=== PATIENT | male | born 1965 | race Caucasian/White ===

== ENCOUNTER 2016-08-21 00:06 | Inpatient (IN) | payer OTHER ==
[~2016-08-21] VITALS: Ht 180.3 cm; Wt 91.7 kg
--- NOTE | 2016-08-21 00:33 | DIAGNOSTIC IMAGING REPORT ---
PROCEDURE: XR CHEST 1 VIEW INDICATION: SHORTNESS OF BREATH TECHNIQUE: Portable AP view (0025 hours). COMPARISON: None. FINDINGS: Allowing for suboptimal inspiration, and overlying wires and electrodes, there are moderate parenchymal changes at the left lung base. Right lung is clear. Heart and mediastinum are normal. Thorax is normal. IMPRESSION: 1. Moderate parenchymal changes at the left lung base. Consider inflammatory process and/or pneumonia. 2. Findings discussed with Dr. Shalom Lau.
--- NOTE | 2016-08-21 01:39 | ED NURSING NOTES ---
Clinical Report - Nurses [facility] [place] [address] 08/21/2016 0:06 Patient: MOON BUCHANAN TRIAGE Triage time 00:08. Acuity: LEVEL 2. Chief Complaint: CHEST PAIN and (Onset of chest pain this afternoon, has gotten worse over the course of the day. Describes pain as "sharp chest pain" in the sternum. Pain does not radiate. Reports having a head cold which began about 5 days ago.). Alert. SEPSIS SCREEN: Sepsis Screen: positive. Infection suspected/documented. Temperature greater than 38.3 degrees C (101 degrees F), heart rate greater than 90 and respiratory rate greater than 20. Physician notified and protocol initiated. --00:16 Sunil Duckworth R.N. 00:08 08/21/16. BP: 172/94 (regular adult cuff) taken on the left arm, via an automated monitor, while lying. HR: 123 (tachycardic). RR: 22 (regular, labored and normal). O2 saturation: 87% on room air. O2 started via nasal cannula. Temp: 101.9 F (oral). --00:16 Sunil Duckworth R.N. Weight: 81.6 kg stated. Height/Length: 71 inches Per Patient. BMI: 25.1. --00:14 Sunil Duckworth R.N. Medications None. --00:13 Sunil Duckworth R.N. Medication/allergy information source: the patient. --00:16 Sunil Duckworth R.N. Allergies No Known Drug Allergy. --00:13 Sunil Duckworth R.N. History Arrived by private vehicle. Historian: patient. Accompanied by spouse. Primary physician (None). This started today. He has had difficulty breathing and a nonproductive cough. No nausea, vomiting or fever. 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 Took ibuprofen. PAST MEDICAL HX: Immunizations: status is unknown. Has not received seasonal influenza immunization. SOCIAL HX: Current every day heavy tobacco smoker (cigarette)- less than 1 pack per day. History of heavy drug use: heroin, methamphetamines. Recently used drugs today. No alcohol use. He has not traveled outside the [place] The patient was not exposed to MRSA. ABUSE ASSESSMENT: Abuse assessment: The patient was asked "Do you feel safe in your home?" and "Has anyone hurt you or threatened to hurt you?". No report of abuse. SELF HARM ASSESSMENT: A self harm assessment was performed. The patient answered "no" to the question "Do you have thoughts of harming or killing yourself?" and "Have you recently had thoughts about harming or killing others?". FALL RISK ASSESSMENT: Fall risk assessment completed. No fall risk identified. NUTRITIONAL RISK ASSESSMENT: The nutritional risk assessment revealed no deficiencies. FUNCTIONAL ASSESSMENT: Functional assessment: no impairments noted. LEARNING NEEDS ASSESSMENT: The learning needs assessment revealed no barriers. SKIN INTEGRITY ASSESSMENT: Skin integrity risk assessment completed. No skin integrity risk identified. --00:16 Sunil Duckworth R.N. ADDITIONAL SURGERIES: Wrist Surgery. --00:13 Sunil Duckworth R.N. Assessment GENERAL / NEURO / PSYCH: Alert. Oriented X 4. Appears in distress. [place] Coma Scale: 15- eyes open spontaneously (4); best verbal response- oriented x 4 (5); best motor response- obeys commands (6). Patient appears calm and cooperative. RESPIRATORY: Mild respiratory distress. SKIN: Skin is warm. Skin is diaphoretic. --00:16 Sunil Duckworth R.N. Interventions ID band on patient. To treatment room. --00:16 Sunil Duckworth R.N. PHYSICAL ASSESSMENT To room via wheelchair. GENERAL / NEURO / PSYCH: Alert. Oriented X 4. Appears in pain and in distress. RESPIRATORY: Moderate respiratory distress. The patient can speak a few words at a time. Mild clavicular and intercostal accessory muscle use. Decreased breath sounds in the bases bilaterally. Expiratory wheezes in the right and left upper lung posteriorly. CVS: Cardiac rhythm: sinus tachycardia. Heart sounds within normal limits. Pulses: right radial 2+ and left radial 2+. Capillary refill less than 2 seconds. GI / : Abdomen soft and nontender. Abnormal bowel sounds present in all quadrants (Hypoactive). EXTREMITIES: No lower extremity edema. SKIN: Skin is pale. ( Hot). --00:41 Sunil Duckworth R.N. NURSING PROGRESS NOTES The initial plan of care for this patient has been created This plan of care was discussed with the patient and spouse. soil biology teacher, pulse oximeter and NIBP monitor placed on patient; reference and instruction librarian- Lead II. Patient gowned. Reassurance given to the patient. Two patient identifiers checked. Call light placed in reach. Side rails up x 1. Bed placed in lowest position. Brakes of bed on. Patient ready for evaluation- ED physician notified. --00:17 Sunil Duckworth R.N. EKG time: (0014). EKG was ordered, performed by a tech and shown to the ED physician. --00:19 Sunil Duckworth R.N. 00:24 08/21/2016 Site #1 started via IV in the right antecubital space with an 20g angiocath, with aseptic technique and good blood return; one attempt. Blood drawn: rainbow set and cultures x1. Labeled in the presence of the patient and sent to the lab. Saline lock flushed with 10 mL saline. --00:24 Sunil Duckworth R.N. 00:24 08/21/2016 Started bag #1 1000 mL IV Fluids IV NS (Saline); bolus of 1000 mL over 1 hour(s) then at 1000 mL/hr over 1 hour(s) via site #1. Allergies verified and confirmed 5 rights. IV patency established. IV site checked: no pain, redness, or swelling. IV flushed thoroughly pre- and post-medication administration. Completed per protocol. --00:24 Sunil Duckworth R.N. 00:36 08/21/2016 Site #2 started via IV in the left antecubital space with an 20g angiocath, with aseptic technique and good blood return; one attempt. Blood drawn: cultures x2. Saline lock flushed with 10 mL saline. --00:36 Sunil Duckworth R.N. 00:36 08/21/2016 Started 750 mg of Levaquin (Levofloxacin) IVPB in bag #1 250 mL; at 100 mL/hr over 2.5 hour(s) via site #2; Allergies verified and confirmed 5 rights. IV patency established. IV site checked: no pain, redness, or swelling. IV flushed thoroughly pre- and post-medication administration. Completed per protocol. --00:36 Sunil Duckworth R.N. 00:36 08/21/16. BP: 148/92 (regular adult cuff) taken on the left arm, via an automated monitor, while lying. HR: 124 (regular and tachycardic). RR: 22 (regular, labored and rapid). O2 saturation: 90% on nasal cannula at 2 liters/minute. O2 started via nasal cannula at 3 liters/minute. --00:37 Sunil Duckworth R.N. 00:42 08/21/2016 Tylenol (Acetaminophen) PO Tablets 650 mg given. Allergies verified and confirmed 5 rights. --00:42 Sunil Duckworth R.N. 01:07 08/21/16. BP: 146/83 (regular adult cuff) taken on the left arm, via an automated monitor, while lying. HR: 126 (regular and tachycardic). RR: 16 (regular, unlabored and normal). O2 saturation: 92% on nasal cannula at 3 liters/minute. --01:07 Sunil Duckworth R.N. Overall patient status is the same- he states feels the same. --01:07 Sunil Duckworth R.N. Patient ID band checked for patient name and birthdate: patient confirmed. Instructions provided to collect clean catch urine and patient verbalized understanding. Clean catch urine collected with return of damaso-colored clear urine; sample sent to lab for urinalysis. Specimen labeled in the presence of the patient. --01:08 Sunil Duckworth R.N. 01:14 08/21/2016 Toradol IVP 30 mg given over 2 minute(s) via site #1. Allergies verified and confirmed 5 rights. IV patency established. IV site checked: no pain, redness, or swelling. IV flushed thoroughly pre- and post-medication administration. IVP given by RN. --01:14 Sunil Duckworth R.N. 01:14 08/21/2016 Dilaudid (HYDROmorphone HCl PF) IVP 1 mg given over 2 minute(s) via site #1. Sedative warning given to the patient. IV patency established. IV site checked: no pain, redness, or swelling. IV flushed thoroughly pre- and post-medication administration. IVP given by RN. --01:14 Sunil Duckworth R.N. 01:56 08/21/16. O2 saturation: 91% on nasal cannula at 6 liters/minute. Additional comments: Pt was placed on 6 liters nc by RT. --01:57 Patrick Ochoa R.N. 01:58 08/21/2016 IV Fluids IV NS Discontinued: bag #1 completed. Total amount infused: 1000 mL. IV patency established. IV site checked: no pain, redness, or swelling. IV flushed thoroughly. --01:58 Barbara Jimenez 01:59 08/21/2016 Levaquin IVPB Discontinued: bag #1 completed. Total amount infused: 150 mL. IV patency established. IV site checked: no pain, redness, or swelling. IV flushed thoroughly. --01:59 Barbara Jimenez Patient transported to [place] by stretcher with O2. (02:03). --02:04 Patrick Ochoa R.N. 02:26 08/21/2016 Started 2 gm of Vancomycin IVPB; at 200 mL/hr over 1 hour(s) via site #1 via IV pump. Allergies verified and confirmed 5 rights. IV patency established. IV site checked: no pain, redness, or swelling. IV flushed thoroughly pre- and post-medication administration. --02:26 Patrick Ochoa R.N. DISPOSITION / DISCHARGE ( Report was given to Shayne and the pt is going to room 205.). --02:23 Patrick Ochoa R.N. 02:22 08/21/16. BP: 131/78. HR: 119. RR: 16. O2 saturation: 95% on nasal cannula at 6 liters/minute. --02:23 Patrick Ochoa R.N. Departure time: 02:30. Condition at departure: improved. Admitted to Acute Care (02:30). ( Rm 205. Transported by stretcher and on 6 liters nc. Pt is was alert and oriented x4. Pt denied any sob.). NATHALIA COMA SCORE: [place] Coma Scale: 15- eyes open spontaneously (4); best verbal response- oriented x 4 (5); best motor response- obeys commands (6). --02:31 Patrick Ochoa R.N. Locked/Released at 08/21/2016 2:32 by Patrick Ochoa R.N.
--- NOTE | 2016-08-21 01:39 | ED ORDER SUMMARY ---
..... Patient: MOON BUCHANAN OrderSheet [facility] VisitID: [id number] [place] [address] 51y, M Registration Date/Time: 08/21/2016 ORDER SHEET Weight: 81.6 kg (stated) Allergies: No Known Drug Allergy GENERAL ORDERS: Blood Culture (No) (N/A) Urgent (00:16 08/21/2016 Susana SUMMERS) (Ack 0:21 IJurca ER Tech1) (0:24 JDeElena R.N.) Chest 1V Urgent (00:08/21/2016 Susana SUMMERS) (Ack 0:21 IJurca ER Tech1) (0:25 AMcQuoid ER Tech1) Cardiac Panel Stat (00:08/21/2016 Susana SUMMERS) (Ack 0:21 IJurca ER Tech1) (0:23 JDeElena R.N.) Oxygen (2 L/min) (NC) (00:18 08/21/2016 Susana SUMMERS) (0:19 JDeElena R.N.) (Ack 0:21 IJurca ER Tech1) Pulse oximeter (00:08/21/2016 Susana SUMMERS) (0:19 JDeElena R.N.) (Ack 0:21 IJurca ER Tech1) EKG - ER Stat (00:08/21/2016 Susana SUMMERS) (0:19 JDeElena R.N.) (Ack 0:21 IJurca ER Tech1) UA-Culture if indicated Urgent (00:08/21/2016 Susana SUMMERS) (Ack 0:25 IJurca ER Tech1) (1:08 JDeElena R.N.) Lactic Acid for Sepsis Protocol Urgent (00:08/21/2016 Susana SUMMERS) (Ack 0:25 IJurca ER Tech1) (0:36 JDeElena R.N.) PCT (Procalcitonin) Urgent (00:08/21/2016 Susana SUMMERS) (Ack 0:25 IJurca ER Tech1) (0:36 JDeElena R.N.) ABG (G) Urgent (01:21 08/21/2016 Susana SUMMERS) (Ack 1:24 IJurca ER Tech1) (1:31 TLewis R.N.) CTA Thorax w Cont (No) (N/A) Urgent (01:38 08/21/2016 Susana SUMMERS) (Ack 1:41 IJurca ER Tech1) (2:13 TLewis R.N.) Urine Drug Screen Urgent (01:59 08/21/2016 Susana SUMMERS) (Ack 1:59 IJurca ER Tech1) (2:21 JDeElena R.N.) MEDICATION ORDERS: Tylenol PO 650 mg (NOW) (00:23 08/21/2016 Susana SUMMERS) (Ack 0:24 JDeElena R.N.) (0:42 JDeElena R.N.) IV FLUIDS: IV NS : initial bolus none -, then 1000 mL/hr for 2h (NOW); Urgent (00:17 08/21/2016 Susana SUMMERS) (Ack 0:19 JDeElena R.N.) Levaquin IV 750 mg/150 mL (NOW) (00:22 08/21/2016 Susana SUMMERS) (Ack 0:24 JDeElena R.N.) (0:36 JDeElena R.N.) Toradol IV 30 mg (NOW) (01:09 08/21/2016 Susana SUMMERS) (1:14 JDeElena R.N.) Dilaudid IV 1 mg (NOW) (01:09 08/21/2016 Susana SUMMERS) (1:14 JDeElena R.N.) Vancomycin IV 25 mg/kg (NOW) (02:01 08/21/2016 Susana SUMMERS) (2:26 TLewis R.N.) ORDER SHEET NOTES: [Electronically signed by Patrick Ochoa R.N. (02:32 08/21/2016)] [Electronically signed by Shalom Lau MD (08:46 08/21/2016)] [Electronically locked/signed by Patrick Ochoa R.N. (02:32 08/21/2016)]
--- NOTE | 2016-08-21 01:39 | ED CLINICAL REPORT ---
Clinical Report - Physicians/Mid Levels [facility] [address] [place] [address] 08/21/2016 0:06 Patient: MOON BUCHANAN Time Seen: 00:16 Aug 21 2016. Arrived- By private vehicle. Historian- patient. CPT: Critical care < 74 min plus (#[id number]) and 30-74 min plus (#[id number]). EKG interpretation (#[id number]). HISTORY OF PRESENT ILLNESS Chief Complaint: COUGH and FEVER. This started today Head cold for past 5 days. and is still present. The illness is described as moderate. The patient has had sputum production, a cough, chest discomfort, difficulty breathing and sinus pressure. He has had fever. No chest pain. Additional history - No known contact with a sick individual. Similar symptoms previously: None. Recent medical care: Not recently seen/assessed. REVIEW OF SYSTEMS No headache, eye discomfort, nausea, vomiting or diarrhea. No abdominal pain or pain, pedal edema or edema or calf pain. No difficulty with urination or urination or skin rash, lesions or rash. No enlarged lymph nodes, joint pain, sore throat, palpitations or black stools. No bloody stools, constipation, urinary frequency, hematuria or diabetic symptoms. No easy bruising. The patient has had fever, fatigue and weakness. All systems otherwise negative, except as recorded above. PAST HISTORY Wrist Surgery. Medications: None. Allergies: No Known Drug Allergy. SOCIAL HISTORY Heavy tobacco smoker (cigarette)- less than 1 pack per day. History of drug use: heroin, methamphetamines. No alcohol use. ADDITIONAL NOTES The nursing notes have been reviewed. PHYSICAL EXAM Vital Signs: 08/21/2016 00:08 BP: 172/94. HR: 123. RR: 22. O2 saturation: 87%. Temp: 101.9 F. Appearance: Alert. Patient in mild distress. Head: No tenderness to palpation/percussion over the sinuses. Eyes: Pupils equal, round and reactive to light. Eyes normal inspection. ENT: Ears normal. Nose normal. Dry mucous membranes present. Pharynx normal. Uvula midline. Neck: Normal inspection. No JVD or meningeal signs. CVS: Tachycardia. Heart sounds normal. Pulses normal. Normal rhythm. Respiratory: Moderate respiratory distress with tachypnea. Moderate rales present in the lower third of both lung hernandez. Abdomen: Soft and nontender. Back: Normal inspection. No CVA tenderness. Skin: Skin warm. Normal skin color. No rash. Extremities: Extremities exhibit normal ROM. No calf tenderness. No lower extremity edema. Neuro: Oriented X 3. No motor deficit. No sensory deficit. Reflexes normal. LABS, X-RAYS, AND EKG EKG: No acute ischemia. Rate: 123. Tachycardia. Normal P waves. Normal QRS complex. Normal axis. Normal ST and T waves. Prior EKG unavailable. The study has been interpreted contemporaneously. The study has been independently viewed by me. The EKG appears to be a good tracing. Chest X-ray: Infiltrate in the left lower lobe. Consistent with pneumonia. Views: AP (portable). The X-rays were independently viewed by me, interpreted by the radiologist and discussed with the radiologist. Laboratory Tests: UA-Culture if indicated: (SALVADOR: 08/21/2016 01:08) ( [facility] 08/21/[place] 01:25) Final results Test Result Flag Units (Reference) URINE COLOR YELLOW URINE APPEARANCE CLEAR URINE GLUCOSE 3+ (NEGATIVE) URINE BILIRUBIN NEGATIVE (NEGATIVE) URINE KETONE NEGATIVE (NEGATIVE) URINE SPECIFIC GRAVITY 1.015 (1.010-1.030) URINE PH 7.5 (5.0-8.0) URINE PROTEIN TRACE (NEGATIVE) URINE UROBILINOGEN 0.2 EU/dL (0.2-1.0) URINE NITRITE NEGATIVE (NEGATIVE) URINE BLOOD NEGATIVE (NEGATIVE) URINE LEUK ESTERASE NEGATIVE (NEGATIVE) URINE RBC NONE SEEN rbc/hpf (0-1) URINE WBC RARE wbc/hpf (0-1) URINE EPITHELIAL CELLS NONE SEEN EPI/hpf (0-5) URINE BACTERIA NONE SEEN (NONE SEEN) URINE COMMENT CULT NOT INDICATED URINE CULTURES ARE SET-UP BASED ON THE FOLLOWING CRITERIA:POSITIVE NITRITEPOSITIVE LEUKOCYTE ESTERASEGREATER THAN 10 WHITE BLOOD CELLSMODERATE (2+) OR GREATER BACTERIA CBC w Diff: (SALVADOR: 08/21/2016 00:20) ( [facility] 08/21/2016 00:54) Final results Test Result Flag Units (Reference) WHITE BLOOD COUNT 17.6 H K/uL (4.5-11.5) RED BLOOD COUNT 5.43 M/uL (4.50-5.90) HEMOGLOBIN 15.9 gm/dL (13.5-17.5) HEMATOCRIT 46.9 % (41.0-53.0) MEAN CELL VOLUME 86 fL (80-100) MEAN CORPUSCULAR HGB 29 pg (26-34) MEAN CORPUSCULAR HGB CONC 34 g/dL (31-37) RED CELL DISTRIBUTION WIDTH 13.4 % (11.6-14.8) PLATELET COUNT 292 K/uL (150-400) NEUTROPHIL % 87.2 H % (50-75) LYMPH % 6.3 L % (25-40) MONO % 6.3 % (3-14) EOSINOPHIL % 0 % (0-4) BASOPHIL % 0.2 % (0-2) [id number]: (SALVADOR: 08/21/2016 05:40) ( MsgRcvd 08/21/2016 06:24) Final results Test Result Flag Units (Reference) PROCALCITONIN 1.0 H ng/mL (0-0.5) PCT Concentration: Interpretation : Risk/option for action PCT <=0.5 ng/mL : Systemic : Low risk forinfection(sepsis): progression to severeis not likely. : systemic infection.Local bacterial : CAUTION-PCT levelsinfection is : below 0.5 ng/mL do notpossible. : exclude an infection,because localizedinfections (withoutsystemic signs) may beassociated with suchlow levels. If PCT ismeasured very earlyafter a bacterialchallenge (usually <6hours), these valuesmay still be low. Inthis case PCT shouldbe re-assessed 6-24hours later. PCT >0.5 and : Systemic infection: Moderate risk for<= 2 ng/mL : (sepsis) is : progression to severepossible, but : systemic infection.other conditions : The patient should beare known to : closely monitoredelevate PCT. : both clinically andby re-assessing PCTwithin 6-24 hours. PCT > 2 ng/mL : Systemic infection: High risk for(sepsis) is likely: progression to severeunless other : systemic infection.causes are known. : PCT >= 10 ng/mL : Important systemic: High likelihood ofinflammatory : severe sepsis orresponse, almost : septic shock.exclusively due to:severe bacterial :sepsis or septic :shock. : Urine Drug Screen: (SALVADOR: 08/21/2016 01:08) ( MsgRcvd 08/21/2016 02:28) Final results Test Result Flag Units (Reference) AMPHETAMINE/METHAMPHETAMINE POSITIVE H (NEGATIVE) BARBITURATE NEGATIVE (NEGATIVE) BENZODIAZEPINE NEGATIVE (NEGATIVE) CANNABINOID NEGATIVE (NEGATIVE) COCAINE NEGATIVE (NEGATIVE) ECSTASY NEGATIVE (NEGATIVE) METHADONE NEGATIVE (NEGATIVE) OPIATE POSITIVE H (NEGATIVE) The urine drug screen is a qualitative screening test fordrug overdose and abuse. All screen results should beconsidered as presumptive.Drugs screened for are as follows:BenzodiazepinesCocaineAmphetamines/MetamphetaminesTHC (Tetrahydrocannabinol)OpiatesBarbituratesEcstasyMethadonePositive results are unconfirmed. For confirmation, notifythe lab for the specimen to be sent to the reference lab.All confirmations must be performed by a differentmethodology.The ingestion of natural herbal and plant productscontaining Ephedra/Ephedra metabolites can produce in urineone or more substances capable of cross reacting withamphetamine/methamphetamine immunoassays. These testsprovide a preliminary result only. A more specificalternative chemical method must be used to obtain aconfirmed analytical result. [id number]: (SALVADOR: 08/21/2016 00:20) ( MsgRcvd 08/21/2016 01:40) Final results Test Result Flag Units (Reference) LACTIC ACID SEPSIS PROTOCOL 2.3 H mmol/L (0.4-2.0) [id number]: (SALVADOR: 08/21/2016 00:20) ( MsgRcvd 08/21/2016 01:21) Final results Test Result Flag Units (Reference) PROCALCITONIN <0.5 ng/mL (0-0.5) PCT Concentration: Interpretation : Risk/option for action PCT <=0.5 ng/mL : Systemic : Low risk forinfection(sepsis): progression to severeis not likely. : systemic infection.Local bacterial : CAUTION-PCT levelsinfection is : below 0.5 ng/mL do notpossible. : exclude an infection,because localizedinfections (withoutsystemic signs) may beassociated with suchlow levels. If PCT ismeasured very earlyafter a bacterialchallenge (usually <6hours), these valuesmay still be low. Inthis case PCT shouldbe re-assessed 6-24hours later. PCT >0.5 and : Systemic infection: Moderate risk for<= 2 ng/mL : (sepsis) is : progression to severepossible, but : systemic infection.other conditions : The patient should beare known to : closely monitoredelevate PCT. : both clinically andby re-assessing PCTwithin 6-24 hours. PCT > 2 ng/mL : Systemic infection: High risk for(sepsis) is likely: progression to severeunless other : systemic infection.causes are known. : PCT >= 10 ng/mL : Important systemic: High likelihood ofinflammatory : severe sepsis orresponse, almost : septic shock.exclusively due to:severe bacterial :sepsis or septic :shock. : CHEM 13 PANEL: (SALVADOR: 08/21/2016 00:20) ( MsgRcvd 08/21/2016 01:06) Final results Test Result Flag Units (Reference) GLUCOSE 150 H mg/dL (70-110) BUN 10 mg/dL (7-18) CREATININE 1.0 mg/dL (0.6-1.3) Estimated GFR >60 mL/min Estimated GFR- >60 mL/min Note: Persistent reduction over 3 months in eGFR<60 mL/min/1.73 m2 defines CKD. Patients with eGFR values>=60 mL/min/1.73 m2 may also have CKD if evidence ofpersistent proteinuria. Additional information may be foundat www.kidney.org. SODIUM 135 L mmol/L (136-145) POTASSIUM 4.4 mmol/L (3.5-5.1) CHLORIDE 99 mmol/L (98-107) CARBON DIOXIDE 28 mmol/L (21-32) CALCIUM 9.2 mg/dL (8.5-10.1) TOTAL PROTEIN 7.9 g/dL (6.4-8.2) ALBUMIN 3.6 g/dL (3.3-5.0) BILIRUBIN, TOTAL 0.8 mg/dL (0.0-1.0) ALKALINE PHOSPHATASE 103 U/L (46-116) AST (SGOT) 23 U/L (15-37) ALT (SGPT) 46 U/L (12-78) MAGNESIUM 1.7 L mg/dL (1.8-2.4) CPK 60 U/L (24-260) TROPONIN I <0.05 L ng/mL (0.00-1.5) TROPONIN REFERENCE RANGE:<0.1 NEGATIVE0.1-1.5 INDETERMINANT>1.5 POSITIVE ABG: (SALVADOR: 08/21/2016 01:21) ( MsgRcvd 08/21/2016 01:43) Final results Test Result Flag Units (Reference) FIO2 28 % (20-101) ABG MODE OF DELIVERY NC MODIFIED TAM TEST POSITIVE? YES ARTERIAL BLOOD GAS SITE RR ARTERIAL BLOOD GAS pH 7.50 H (7.35-7.45) ABG PCO2 29.4 L mmHg (35-45) ABG PO2 61.9 L mmHg (80.0-100.0) ABG BASE EXCESS 0.0 H mmol/L (-6.0--6.0) ABG HCO3 22.8 mmol/L (20.0-26.0) ABG TCO2 23.7 L mmol/L (24.0-30.0) ABG NkQuD0c 101.9 H mmHg (7.0-14.0) *NOTE: Normal rangeis based on aFIO2 of 21% ABG SAT O2 94.2 L % (95.1-100.0) ABG TOTAL HEMOGLOBIN 14.0 g/dL (14.0-18.0) ABG O2 HEMOGLOBIN 92.2 L % (95.0-100.0) ABG CARBOXYHEMOGLOBIN 2.2 H % (0.5-1.5) ABG METHEMOGLOBIN -0.1 L % (0.4-1.5) ABG RHEMOGLOBIN 5.7 % . PROGRESS AND PROCEDURES Course of Care: NC 02 IV NS Albuterol HHN Tylenol 650 mg po BC times 2 Levaquin 750 mg IV Patient is stable. Symptoms better. Discussed case with on-call health care provider, (Russel). Reviewed test results. Agreed upon treatment plan and decision to admit. Health care provider will see patient in hospital. Patient/family counseled. Old medical records ordered. Disposition orders written. Disposition: Admitted to Acute Care. CLINICAL IMPRESSION Bacterial bronchopneumonia with hypoxemia and sepsis. Vital signs recorded and reviewed; empiric antibiotics given in the ED. (Electronically signed by Shalom Lau MD 08/21/2016 8:46)
--- NOTE | 2016-08-21 01:39 | ED CLINICAL REPORT ---
Clinical Report - Physicians/Mid Levels [facility] [address] [place] [address] 08/21/2016 0:06 Patient: MOON BUCHANAN Time Seen: 00:16 Aug 21 2016. Arrived- By private vehicle. Historian- patient. CPT: Critical care < 74 min plus (#[id number]) and 30-74 min plus (#[id number]). EKG interpretation (#[id number]). HISTORY OF PRESENT ILLNESS Chief Complaint: COUGH and FEVER. This started today Head cold for past 5 days. and is still present. The illness is described as moderate. The patient has had sputum production, a cough, chest discomfort, difficulty breathing and sinus pressure. He has had fever. No chest pain. Additional history - No known contact with a sick individual. Similar symptoms previously: None. Recent medical care: Not recently seen/assessed. REVIEW OF SYSTEMS No headache, eye discomfort, nausea, vomiting or diarrhea. No abdominal pain or pain, pedal edema or edema or calf pain. No difficulty with urination or urination or skin rash, lesions or rash. No enlarged lymph nodes, joint pain, sore throat, palpitations or black stools. No bloody stools, constipation, urinary frequency, hematuria or diabetic symptoms. No easy bruising. The patient has had fever, fatigue and weakness. All systems otherwise negative, except as recorded above. PAST HISTORY Wrist Surgery. Medications: None. Allergies: No Known Drug Allergy. SOCIAL HISTORY Heavy tobacco smoker (cigarette)- less than 1 pack per day. History of drug use: heroin, methamphetamines. No alcohol use. ADDITIONAL NOTES The nursing notes have been reviewed. PHYSICAL EXAM Vital Signs: 08/21/2016 00:08 BP: 172/94. HR: 123. RR: 22. O2 saturation: 87%. Temp: 101.9 F. Appearance: Alert. Patient in mild distress. Head: No tenderness to palpation/percussion over the sinuses. Eyes: Pupils equal, round and reactive to light. Eyes normal inspection. ENT: Ears normal. Nose normal. Dry mucous membranes present. Pharynx normal. Uvula midline. Neck: Normal inspection. No JVD or meningeal signs. CVS: Tachycardia. Heart sounds normal. Pulses normal. Normal rhythm. Respiratory: Moderate respiratory distress with tachypnea. Moderate rales present in the lower third of both lung hernandez. Abdomen: Soft and nontender. Back: Normal inspection. No CVA tenderness. Skin: Skin warm. Normal skin color. No rash. Extremities: Extremities exhibit normal ROM. No calf tenderness. No lower extremity edema. Neuro: Oriented X 3. No motor deficit. No sensory deficit. Reflexes normal. LABS, X-RAYS, AND EKG EKG: No acute ischemia. Rate: 123. Tachycardia. Normal P waves. Normal QRS complex. Normal axis. Normal ST and T waves. Prior EKG unavailable. The study has been interpreted contemporaneously. The study has been independently viewed by me. The EKG appears to be a good tracing. Chest X-ray: Infiltrate in the left lower lobe. Consistent with pneumonia. Views: AP (portable). The X-rays were independently viewed by me, interpreted by the radiologist and discussed with the radiologist. Laboratory Tests: UA-Culture if indicated: (SALVADOR: 08/21/2016 01:08) ( [facility] 08/21/2016 01:25) Final results Test Result Flag Units (Reference) URINE COLOR YELLOW URINE APPEARANCE CLEAR URINE GLUCOSE 3+ (NEGATIVE) URINE BILIRUBIN NEGATIVE (NEGATIVE) URINE KETONE NEGATIVE (NEGATIVE) URINE SPECIFIC GRAVITY 1.015 (1.010-1.030) URINE PH 7.5 (5.0-8.0) URINE PROTEIN TRACE (NEGATIVE) URINE UROBILINOGEN 0.2 EU/dL (0.2-1.0) URINE NITRITE NEGATIVE (NEGATIVE) URINE BLOOD NEGATIVE (NEGATIVE) URINE LEUK ESTERASE NEGATIVE (NEGATIVE) URINE RBC NONE SEEN rbc/hpf (0-1) URINE WBC RARE wbc/hpf (0-1) URINE EPITHELIAL CELLS NONE SEEN EPI/hpf (0-5) URINE BACTERIA NONE SEEN (NONE SEEN) URINE COMMENT CULT NOT INDICATED URINE CULTURES ARE SET-UP BASED ON THE FOLLOWING CRITERIA:POSITIVE NITRITEPOSITIVE LEUKOCYTE ESTERASEGREATER THAN 10 WHITE BLOOD CELLSMODERATE (2+) OR GREATER BACTERIA CBC w Diff: (SALVADOR: 08/21/2016 00:20) ( [facility] 08/21/2016 00:54) Final results Test Result Flag Units (Reference) WHITE BLOOD COUNT 17.6 H K/uL (4.5-11.5) RED BLOOD COUNT 5.43 M/uL (4.50-5.90) HEMOGLOBIN 15.9 gm/dL (13.5-17.5) HEMATOCRIT 46.9 % (41.0-53.0) MEAN CELL VOLUME 86 fL (80-100) MEAN CORPUSCULAR HGB 29 pg (26-34) MEAN CORPUSCULAR HGB CONC 34 g/dL (31-37) RED CELL DISTRIBUTION WIDTH 13.4 % (11.6-14.8) PLATELET COUNT 292 K/uL (150-400) NEUTROPHIL % 87.2 H % (50-75) LYMPH % 6.3 L % (25-40) MONO % 6.3 % (3-14) EOSINOPHIL % 0 % (0-4) BASOPHIL % 0.2 % (0-2) [id number]: (SALVADOR: 08/21/2016 05:40) ( MsgRcvd 08/21/2016 06:24) Final results Test Result Flag Units (Reference) PROCALCITONIN 1.0 H ng/mL (0-0.5) PCT Concentration: Interpretation : Risk/option for action PCT <=0.5 ng/mL : Systemic : Low risk forinfection(sepsis): progression to severeis not likely. : systemic infection.Local bacterial : CAUTION-PCT levelsinfection is : below 0.5 ng/mL do notpossible. : exclude an infection,because localizedinfections (withoutsystemic signs) may beassociated with suchlow levels. If PCT ismeasured very earlyafter a bacterialchallenge (usually <6hours), these valuesmay still be low. Inthis case PCT shouldbe re-assessed 6-24hours later. PCT >0.5 and : Systemic infection: Moderate risk for<= 2 ng/mL : (sepsis) is : progression to severepossible, but : systemic infection.other conditions : The patient should beare known to : closely monitoredelevate PCT. : both clinically andby re-assessing PCTwithin 6-24 hours. PCT > 2 ng/mL : Systemic infection: High risk for(sepsis) is likely: progression to severeunless other : systemic infection.causes are known. : PCT >= 10 ng/mL : Important systemic: High likelihood ofinflammatory : severe sepsis orresponse, almost : septic shock.exclusively due to:severe bacterial :sepsis or septic :shock. : Urine Drug Screen: (SALVADOR: 08/21/2016 01:08) ( MsgRcvd 08/21/2016 02:28) Final results Test Result Flag Units (Reference) AMPHETAMINE/METHAMPHETAMINE POSITIVE H (NEGATIVE) BARBITURATE NEGATIVE (NEGATIVE) BENZODIAZEPINE NEGATIVE (NEGATIVE) CANNABINOID NEGATIVE (NEGATIVE) COCAINE NEGATIVE (NEGATIVE) ECSTASY NEGATIVE (NEGATIVE) METHADONE NEGATIVE (NEGATIVE) OPIATE POSITIVE H (NEGATIVE) The urine drug screen is a qualitative screening test fordrug overdose and abuse. All screen results should beconsidered as presumptive.Drugs screened for are as follows:BenzodiazepinesCocaineAmphetamines/MetamphetaminesTHC (Tetrahydrocannabinol)OpiatesBarbituratesEcstasyMethadonePositive results are unconfirmed. For confirmation, notifythe lab for the specimen to be sent to the reference lab.All confirmations must be performed by a differentmethodology.The ingestion of natural herbal and plant productscontaining Ephedra/Ephedra metabolites can produce in urineone or more substances capable of cross reacting withamphetamine/methamphetamine immunoassays. These testsprovide a preliminary result only. A more specificalternative chemical method must be used to obtain aconfirmed analytical result. [id number]: (SALVADOR: 08/21/2016 00:20) ( MsgRcvd 08/21/2016 01:40) Final results Test Result Flag Units (Reference) LACTIC ACID SEPSIS PROTOCOL 2.3 H mmol/L (0.4-2.0) [id number]: (SALVADOR: 08/21/2016 00:20) ( MsgRcvd 08/21/2016 01:21) Final results Test Result Flag Units (Reference) PROCALCITONIN <0.5 ng/mL (0-0.5) PCT Concentration: Interpretation : Risk/option for action PCT <=0.5 ng/mL : Systemic : Low risk forinfection(sepsis): progression to severeis not likely. : systemic infection.Local bacterial : CAUTION-PCT levelsinfection is : below 0.5 ng/mL do notpossible. : exclude an infection,because localizedinfections (withoutsystemic signs) may beassociated with suchlow levels. If PCT ismeasured very earlyafter a bacterialchallenge (usually <6hours), these valuesmay still be low. Inthis case PCT shouldbe re-assessed 6-24hours later. PCT >0.5 and : Systemic infection: Moderate risk for<= 2 ng/mL : (sepsis) is : progression to severepossible, but : systemic infection.other conditions : The patient should beare known to : closely monitoredelevate PCT. : both clinically andby re-assessing PCTwithin 6-24 hours. PCT > 2 ng/mL : Systemic infection: High risk for(sepsis) is likely: progression to severeunless other : systemic infection.causes are known. : PCT >= 10 ng/mL : Important systemic: High likelihood ofinflammatory : severe sepsis orresponse, almost : septic shock.exclusively due to:severe bacterial :sepsis or septic :shock. : CHEM 13 PANEL: (SALVADOR: 08/21/2016 00:20) ( MsgRcvd 08/21/2016 01:06) Final results Test Result Flag Units (Reference) GLUCOSE 150 H mg/dL (70-110) BUN 10 mg/dL (7-18) CREATININE 1.0 mg/dL (0.6-1.3) Estimated GFR >60 mL/min Estimated GFR- >60 mL/min Note: Persistent reduction over 3 months in eGFR<60 mL/min/1.73 m2 defines CKD. Patients with eGFR values>=60 mL/min/1.73 m2 may also have CKD if evidence ofpersistent proteinuria. Additional information may be foundat www.kidney.org. SODIUM 135 L mmol/L (136-145) POTASSIUM 4.4 mmol/L (3.5-5.1) CHLORIDE 99 mmol/L (98-107) CARBON DIOXIDE 28 mmol/L (21-32) CALCIUM 9.2 mg/dL (8.5-10.1) TOTAL PROTEIN 7.9 g/dL (6.4-8.2) ALBUMIN 3.6 g/dL (3.3-5.0) BILIRUBIN, TOTAL 0.8 mg/dL (0.0-1.0) ALKALINE PHOSPHATASE 103 U/L (46-116) AST (SGOT) 23 U/L (15-37) ALT (SGPT) 46 U/L (12-78) MAGNESIUM 1.7 L mg/dL (1.8-2.4) CPK 60 U/L (24-260) TROPONIN I <0.05 L ng/mL (0.00-1.5) TROPONIN REFERENCE RANGE:<0.1 NEGATIVE0.1-1.5 INDETERMINANT>1.5 POSITIVE ABG: (SALVADOR: 08/21/2016 01:21) ( MsgRcvd 08/21/2016 01:43) Final results Test Result Flag Units (Reference) FIO2 28 % (20-101) ABG MODE OF DELIVERY NC MODIFIED TAM TEST POSITIVE? YES ARTERIAL BLOOD GAS SITE RR ARTERIAL BLOOD GAS pH 7.50 H (7.35-7.45) ABG PCO2 29.4 L mmHg (35-45) ABG PO2 61.9 L mmHg (80.0-100.0) ABG BASE EXCESS 0.0 H mmol/L (-6.0--6.0) ABG HCO3 22.8 mmol/L (20.0-26.0) ABG TCO2 23.7 L mmol/L (24.0-30.0) ABG UiFxL4v 101.9 H mmHg (7.0-14.0) *NOTE: Normal rangeis based on aFIO2 of 21% ABG SAT O2 94.2 L % (95.1-100.0) ABG TOTAL HEMOGLOBIN 14.0 g/dL (14.0-18.0) ABG O2 HEMOGLOBIN 92.2 L % (95.0-100.0) ABG CARBOXYHEMOGLOBIN 2.2 H % (0.5-1.5) ABG METHEMOGLOBIN -0.1 L % (0.4-1.5) ABG RHEMOGLOBIN 5.7 % . PROGRESS AND PROCEDURES Course of Care: NC 02 IV NS Albuterol HHN Tylenol 650 mg po BC times 2 Levaquin 750 mg IV Patient is stable. Symptoms better. Discussed case with on-call health care provider, (Russel). Reviewed test results. Agreed upon treatment plan and decision to admit. Health care provider will see patient in hospital. Patient/family counseled. Old medical records ordered. Disposition orders written. Disposition: Admitted to Acute Care. CLINICAL IMPRESSION Bacterial bronchopneumonia with hypoxemia and sepsis. Vital signs recorded and reviewed; empiric antibiotics given in the ED. (Electronically signed by Shalom Lau MD 08/21/2016 8:46)
--- NOTE | 2016-08-21 01:39 | ED ORDER SUMMARY ---
..... Patient: MOON BUCHANAN OrderSheet [facility] VisitID: [id number] [place] [address] 51y, M Registration Date/Time: 08/21/2016 ORDER SHEET Weight: 81.6 kg (stated) Allergies: No Known Drug Allergy GENERAL ORDERS: Blood Culture (No) (N/A) Urgent (00:16 08/21/2016 Susana SUMMERS) (Ack 0:21 IJurca ER Tech1) (0:24 JDeElena R.N.) Chest 1V Urgent (00:08/21/2016 Susana SUMMERS) (Ack 0:21 IJurca ER Tech1) (0:25 AMcQuoid ER Tech1) Cardiac Panel Stat (00:08/21/2016 Susana SUMMERS) (Ack 0:21 IJurca ER Tech1) (0:23 JDeElena R.N.) Oxygen (2 L/min) (NC) (00:18 08/21/2016 Susana SUMMERS) (0:19 JDeElena R.N.) (Ack 0:21 IJurca ER Tech1) Pulse oximeter (00:08/21/2016 Susana SUMMERS) (0:19 JDeElena R.N.) (Ack 0:21 IJurca ER Tech1) EKG - ER Stat (00:08/21/2016 Susana SUMMERS) (0:19 JDeElena R.N.) (Ack 0:21 IJurca ER Tech1) UA-Culture if indicated Urgent (00:08/21/2016 Susana SUMMERS) (Ack 0:25 IJurca ER Tech1) (1:08 JDeElena R.N.) Lactic Acid for Sepsis Protocol Urgent (00:08/21/2016 Susana SUMMERS) (Ack 0:25 IJurca ER Tech1) (0:36 JDeElena R.N.) PCT (Procalcitonin) Urgent (00:08/21/2016 Susana SUMMERS) (Ack 0:25 IJurca ER Tech1) (0:36 JDeElena R.N.) ABG (G) Urgent (01:21 08/21/2016 Susana SUMMERS) (Ack 1:24 IJurca ER Tech1) (1:31 TLewis R.N.) CTA Thorax w Cont (No) (N/A) Urgent (01:38 08/21/2016 Susana SUMMERS) (Ack 1:41 IJurca ER Tech1) (2:13 TLewis R.N.) Urine Drug Screen Urgent (01:59 08/21/2016 Susana SUMMERS) (Ack 1:59 IJurca ER Tech1) (2:21 JDeElena R.N.) MEDICATION ORDERS: Tylenol PO 650 mg (NOW) (00:23 08/21/2016 Susana SUMMERS) (Ack 0:24 JDeElena R.N.) (0:42 JDeElena R.N.) IV FLUIDS: IV NS : initial bolus none -, then 1000 mL/hr for 2h (NOW); Urgent (00:17 08/21/2016 Susana SUMMERS) (Ack 0:19 JDeElena R.N.) Levaquin IV 750 mg/150 mL (NOW) (00:22 08/21/2016 Susana SUMMERS) (Ack 0:24 JDeElena R.N.) (0:36 JDeElena R.N.) Toradol IV 30 mg (NOW) (01:09 08/21/2016 Susana SUMMERS) (1:14 JDeElena R.N.) Dilaudid IV 1 mg (NOW) (01:09 08/21/2016 Susana SUMMERS) (1:14 JDeElena R.N.) Vancomycin IV 25 mg/kg (NOW) (02:01 08/21/2016 Susana SUMMERS) (2:26 TLewis R.N.) ORDER SHEET NOTES: [Electronically signed by Patrick Ochoa R.N. (02:32 08/21/2016)] [Electronically signed by Shalom Lau MD (08:46 08/21/2016)] [Electronically locked/signed by Patrick Ochoa R.N. (02:32 08/21/2016)]
[2016-08-21 03:06] VITALS: BP 142/87
--- NOTE | 2016-08-21 03:50 | Progress Note ---
Subjective General Admission to Acute Care In-patient Admission History and Physical Examination Patient Name: Sammy Walker Admission Date: August 21, 2016 Primary Care Provider: None Attending Physician: Jmaes Goode MD. Admitting Physician: James Goode MD Code Status: FULL CODE Room: 205-S SUBJECTIVE Historian: Patient and family Reliability: Fair Chief Complaint: Shortness of breath, chest pain History of Present Illness: The patient is a 51-year-old white male without significant past medical history ; but with a long history of smoking IVDU and Methampheatmin use who presented to [facility] emergency department on the day of admission secondary to complaints of chest pain and shortness of breath. [facility] ER evaluation was consistent with pneumonia with hypoxia. Secondary to the above, the patient was admitted by James Goode M.D. for further evaluation and treatment. The patient first bagan having symptoms related to an upper respiratory infection more than 5 days ago. Patient states that the respiratory infection worsen over the past 24 hours. Patient states that he had initially had cold- like symptoms with cough, sneeze, runny nose, and fever.. Patient now with past 24 hours has experienced left sided chest pain, cough, congestion and tightness in the chest. Patient also reports of sinus-like pressure. He is also having symptoms of shortness of breath, weakness and poor appetite. Secondary to the above the patient presented to [facility] emergency department for further evaluation and treatment. [facility] ER evaluation was consistent with left-sided pneumonia, pleuritic-noncardiac chest pain. Secondary to the above the patient was admitted for further evaluation and treatment PAST MEDICAL HISTORY Illnesses: No medical history Allergies: 1. No known drug allergies Medications: None Surgery: None Injuries: No reported injuries Hospitalizations: None FAMILY HISTORY Parents: 1. Father, good health 2. Mother, good health Children: 1. None Other significant family history: None SOCIAL HISTORY 1. Marital Status: 2. Moravian: Undisclosed 3. Education: 10th grade with vocational education 4. 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 Occupational health exposures: None HABITS 1. Tobacco: Cigarettes, one half pack per day 2. Drugs: IV drug use including heroin, smoking methamphetamine 3. Alcohol: Denies HEALTH SUPERVISION Item/Test No IMMUNIZATIONS: 1. Pneumococcal: None 2. Influenza: None 3. Tetanus: Undisclosed ADVANCED DIRECTIVES: 1. Living well: No 2. POLST: No 3. Code Status: FULL CODE 4. Durable [employer] Health care: No 5. Donor card: No REVIEW OF SYSTEMS Remarkable for those things stated in the history of present illness and past medical history. Seventeen point review of system completed with the following notable findings: Constitutional Fever, Weakness. Denies: Chills. Eyes Denies: Vision Change. ENT Nasal Discharge, Nasal Congestion, Other (sinus pressure). Respiratory SOB w/exertion, Pleuritic Pain, Sputum. Cardiovascular Denies: Palpitations, PND. Gastrointestinal Denies: Abdominal Pain, Diarrhea. Skin Denies: Lesions. Neurological Denies: Numbness, Incoordination, Change in speech. Physical Exam Vital Signs / I&Os Vital Signs Date Time Temp Pulse Resp B/P Pulse O2 O2 Flow FiO2 Ox Delivery Rate 08/21 305 98.4 115 20 142/87 95 Nasal 6.0 Cannula 08/21 0303 6.0 08/21 0249 6.0 08/21 0158 6.0 08/21 0147 2.0 08/21 0023 2.5 General Appearance Oriented X3, Cooperative, No acute distress HEENT PERRLA, EOMI Lungs normal effort, rhonchi with crackles bilateral mid, no wheeze Neck Supple, No JVD Cardiovascular Normal S1 and S2, No murmurs, gallops, rubs, tachycardia Abdomen Soft, No tenderness, No guarding Extremities No clubbing Skin No Breakdown Neurological Normal gait, Normal speech, Normal tone Psych/Mental Status Mental status normal LAB Results Laboratory Tests 08/21 08/21 08/21 08/21 0020 0020 0020 0108 Chemistry Plasma Sodium (136 - 145 mmol/L) 135 Plasma Potassium (3.5 - 5.1 mmol/L) 4.4 Plasma Chloride (98 - 107 mmol/L) 99 CO2 (Enzymatic) (21 - 32 mmol/L) 28 BUN (7 - 18 mg/dL) 10 Creatinine (0.6 - 1.3 mg/dL) 1.0 Est GFR ( Amer) (mL/min) >60 Est GFR (Non-Af Amer) (mL/min) >60 Glucose (70 - 110 mg/dL) 150 Lactic Acid (0.4 - 2.0 mmol/L) 2.3 Plasma Calcium (8.5 - 10.1 mg/dL) 9.2 Plasma Magnesium (1.8 - 2.4 mg/dL) 1.7 Total Bilirubin (0.0 - 1.0 mg/dL) 0.8 AST (15 - 37 U/L) 23 ALT (12 - 78 U/L) 46 Alkaline Phosphatase (46 - 116 U/L) 103 Creatine Kinase (24 - 260 U/L) 60 Troponin (0.00 - 1.5 ng/mL) <0.05 Total Protein (6.4 - 8.2 g/dL) 7.9 Albumin (3.3 - 5.0 g/dL) 3.6 Procalcitonin (0 - 0.5 ng/mL) <0.5 Hematology WBC (4.5 - 11.5 K/uL) 17.6 RBC (4.50 - 5.90 M/uL) 5.43 Hgb (13.5 - 17.5 gm/dL) 15.9 Hct (41.0 - 53.0 %) 46.9 MCV (80 - 100 fL) 86 MCH (26 - 34 pg) 29 RDW (11.6 - 14.8 %) 13.4 Neut % (Auto) (50 - 75 %) 87.2 Lymph % (Auto) (25 - 40 %) 6.3 Greer % (Auto) (3 - 14 %) 6.3 Eos % (Auto) (0 - 4 %) 0 Baso % (Auto) (0 - 2 %) 0.2 Plt Count, EDTA (150 - 400 K/uL) 292 PUBS MCHC (31 - 37 g/dL) 34 Toxicology Urine Opiates Screen (NEGATIVE) POSITIVE Urine Methadone Screen (NEGATIVE) NEGATIVE Ur Barbiturates Screen (NEGATIVE) NEGATIVE U Amphetamin/Meth Scrn (NEGATIVE) POSITIVE MDMA (Ecstasy) Screen (NEGATIVE) NEGATIVE U Benzodiazepines Scrn (NEGATIVE) NEGATIVE Urine Cocaine Screen (NEGATIVE) NEGATIVE U Cannabinoids Screen (NEGATIVE) NEGATIVE Urines Urine Color YELLOW Urine Appearance CLEAR Urine pH (5.0 - 8.0) 7.5 Ur Specific Edgar (1.010 - 1.030) 1.015 Urine Protein (NEGATIVE) TRACE Urine Ketones (NEGATIVE) NEGATIVE Urine Blood (NEGATIVE) NEGATIVE Urine Nitrite (NEGATIVE) NEGATIVE Urine Bilirubin (NEGATIVE) NEGATIVE Urine Urobilinogen (0.2 - 1.0 EU/dL) 0.2 Ur Leukocyte Esterase (NEGATIVE) NEGATIVE Urine RBC (0 - 1 rbc/hpf) NONE SEEN Urine WBC (0 - 1 wbc/hpf) RARE Ur Epithelial Cells (0 - 5 EPI/hpf) NONE SEEN Urine Bacteria (NONE SEEN) NONE SEEN Urine Glucose (NEGATIVE) 3+ Urine Comment CULT NOT INDICATED 08/21 0121 Blood Gas Sample Site RR Total CO2 (24.0 - 30.0 mmol/L) 23.7 ABG pH (7.35 - 7.45) 7.50 ABG pCO2 at Pt Temp (35 - 45 mmHg) 29.4 ABG pO2 at Pt Temp (80.0 - 100.0 mmHg) 61.9 ABG HCO3 (20.0 - 26.0 mmol/L) 22.8 ABG O2 Sat Calc/Michael (95.1 - 100.0 %) 94.2 ABG Base Excess (-6.0 - -6.0 mmol/L) 0.0 ABG Reduced Hgb (%) 5.7 ABG Carboxyhemoglobin (0.5 - 1.5 %) 2.2 ABG Methemoglobin (0.4 - 1.5 %) -0.1 Evens Test YES Other Total Hgb (14.0 - 18.0 g/dL) 14.0 A-a O2 Gradient (7.0 - 14.0 mmHg) 101.9 Hgb O2 Saturation (95.0 - 100.0 %) 92.2 Vent Mode NC FiO2 (20 - 101 %) 28 Microbiology Date/Time Procedure - Status Source Growth 08/21 0035 Blood Culture - RECD BLOOD 08/21 0020 Blood Culture - RECD BLOOD Imaging XR CHEST 1 VIEW IMPRESSION: 1. Moderate parenchymal changes at the left lung base. Consider inflammatory process and/or pneumonia. Assessment and Plan Problem List 1. Pneumonia Plan Follow-up results of the CTA of chest. Continue with respiratory therapy including DuoNeb, albuterol and supplemental oxygen; holding oral steroids. Monitor. Lungs for any persistent change. Long history of smoking. At risk for obstructive airway disease. May consider repeat of the arterial blood gas. Inpatient Levaquin and Vancocin. Narrow the antibiotics Rx prior discharge. Repeat pro-calcitonin after 6 hours. Initial septic protocol in place Follow up on lactic acid level. 2. Hypoxia Plan Hypoxia on room air. In the setting of left-sided pulmonary infiltrates, long smoking history. Supplemental oxygen. Close monitoring. Repeat blood gas 3. IVDA Plan History of IVDA. Discussed and reviewed the health risks with continued use. Encouraged cessation. 4. Illicit drug use Plan Illicit drug use for some time quitting methamphetamine and heroin. Discussed health risks. Encouraged cessation. 5. Tachycardia Plan Cardiac monitors and telemetry in place Current status: Fair, unstable Anticipated discharge date: Anticipated discharge in 2 days Anticipated discharge placement: Home Patient care time: Time spent in chart review, patient interview, physical exam, CPOE, and care documentation: 70 minutes Visit to patient today: 1 Complexity of care: High Initial patient evaluation: Stacy DVT prophylaxis: Lovenox GI prophylaxis; pantoprazole. E&M Codes Admission: Inpt-High/[id number]
--- NOTE | 2016-08-21 05:03 | DIAGNOSTIC IMAGING REPORT ---
PROCEDURE: CTA THORAX WITH CONTRAST INDICATION: Shortness of breath. TECHNIQUE: 80 ml of Isovue 370 was injected intravenously and axial images were obtained of the entire thorax with 3D sagittal and coronal MIP reconstructions. Preliminary report provided by Eric Coffman MD ([facility]). COMPARISON: Compared to chest x-ray earlier today (08/21/2016). FINDINGS: There is dense consolidation at the left lung base with mild parenchymal changes at the right lung base. Pulmonary vessels are normal and there is no evidence of pulmonary embolus. Heart is of normal size. Mildly prominent mediastinal lymph nodes. Thorax is normal. IMPRESSION: 1. Dense consolidation at the left lung base with mild parenchymal changes at the right lung base. Findings are most compatible with pneumonia (e.g., bacterial). 2. Mildly prominent mediastinal lymph nodes (most likely reactive adenopathy). 3. Otherwise negative CT pulmonary arteriogram. No evidence of pulmonary embolus. 4. Preliminary report provided to Dr. Lau. All CT scans at this facility use dose modulation, iterative reconstruction, and/or weight-based dosing when appropriate to reduce radiation dose to as low as reasonably achievable.
[2016-08-21 06:07] VITALS: BP 127/82
--- NOTE | 2016-08-21 08:46 | ED MAR SUMMARY ---
..... Medication Administration Record [facility] [address] [place] [address] Patient: MOON BUCHANAN Visit ID: [id number] 51y, M Weight: 81.6 kg Height/Length: 71 in BMI: 25.1 ALLERGIES: No Known Drug Allergy Start 00:24 08/21/2016 Sunil Duckworth R.N., Stop 01:58 08/21/2016 Barbara Jimenez, Medication Administered: IV NS (SALINE), Dose: IV Fluids over 1 hour(s), Rate: 1000 mL/hr, Bolus: 1000 mL over 1 hour(s), Dispensed: 1000 mL bag, Site: #1 right AC. Medication Ordered: IV NS : initial bolus none -, then 1000 mL/hr for 2h (NOW); Urgent. Start 00:36 08/21/2016 Sunil Duckworth R.N., Stop 01:59 08/21/2016 Barbara Jimenez, Medication Administered: LEVAQUIN [IVPB] (LEVOFLOXACIN), Dose: 750 mg IVPB over 2.5 hour(s), Rate: 100 mL/hr, Dispensed: 250 mL bag, Site: #2 left AC. Medication Ordered: Levaquin IV 750 mg/150 mL (NOW). Given 00:42 08/21/2016 Sunil Duckworth R.N. Medication Administered: TYLENOL [PO] (ACETAMINOPHEN), Dose: 650 mg Tablets PO. Medication Ordered: Tylenol PO 650 mg (NOW). Given 01:14 08/21/2016 Sunil Duckworth R.N. Medication Administered: TORADOL [IVP], Dose: 30 mg IVP over 2 minute(s), Site: #1 right AC. Medication Ordered: Toradol IV 30 mg (NOW). Given 01:08/21/2016 Sunil Duckworth R.N. Medication Administered: DILAUDID [IVP] (HYDROMORPHONE HCL PF), Dose: 1 mg IVP over 2 minute(s), Site: #1 right AC. Medication Ordered: Dilaudid IV 1 mg (NOW). Start 02:26 08/21/2016 Don, Patrick, R.N. Medication Administered: VANCOMYCIN [IVPB], Dose: 2 gm IVPB over 1 hour(s), Rate: 200 mL/hr, Site: #1 right AC. Medication Ordered: Vancomycin IV 25 mg/kg (NOW).
--- NOTE | 2016-08-21 08:46 | ED DISCHARGE INSTRUCTIONS ---
Patient: MOON BUCHANAN General Instructions [facility] VisitID: [id number] [place] [address] 51y, M Registration Date/Time: 08/21/2016 Bacterial bronchopneumonia with hypoxemia and sepsis. Vital signs recorded and reviewed; empiric antibiotics given in the ED. ADDITIONAL INFORMATION Pneumonia (Adult) Pneumonia is an infection deep within the lung, in the small air sacs (alveoli). It may be due to a virus or bacteria and is usually treated with an antibiotic. Severe cases require treatment in the hospital. Milder cases can be treated at home. Symptoms usually start to improve during the first2 days of treatment. Home Care: Rest at home for the first 23 days or until you feel stronger. When resuming activity, dont let yourself become overly tired. Avoid exposure to cigarette smoke (yours or others). You may use acetaminophen (Tylenol) or ibuprofen (Motrin, Advil) to control fever or pain, unless another medicine was prescribed. [NOTE: If you have chronic liver or kidney disease or ever had a stomach ulcer or GI bleeding, talk with your doctor before using these medicines.] (Aspirin should never be used in anyone under 18 years of age who is ill with a fever. It may cause severe liver damage.) Your appetite may be poor so a light diet is fine. Keep well hydrated by drinking 68 glasses of fluids per day (water, sport drinks such as Gatorade, sodas without caffeine, juices, tea, soup, etc.). This will help loosen secretions in the lung, making it easier for you to cough up the phlegm (sputum). If you also have heart or kidney disease, check with your doctor before you drink extra amounts of fluids. Finish all antibiotic medicine prescribed, even if you are feeling better after a few days. Follow Up with your doctor in the next 23 days (or as advised) to be sure you are responding properly to the medicine. [NOTE: If you are age 65 or older, or if you have chronic lung disease (asthma, emphysema or COPD), we recommendthe pneumococcal vaccination and a yearlyinfluenzavaccination(flu-shot) every . Ask your doctor about this.] Get Prompt Medical Attention if any of the following occur: Not getting better within the first 48 hours of treatment Increasing shortness of breath or rapid breathing (over 25 breaths/minute) Coughing up blood or increasing chest pain with breathing Fever of 100.4F (38C) oral or higher, not better with fever medication Increasing weakness, dizziness or fainting Increasing thirst or dry mouth Sinus pain, headache or a stiff neck Chest pain not caused by coughing You have been given the following additional information: Pneumonia (Adult) (Electronically signed by Shalom Lau MD 08/21/2016 8:46)
--- NOTE | 2016-08-21 08:46 | ED MAR SUMMARY ---
..... Medication Administration Record [facility] [address] [place] [address] Patient: MOON BUCHANAN Visit ID: [id number] 51y, M Weight: 81.6 kg Height/Length: 71 in BMI: 25.1 ALLERGIES: No Known Drug Allergy Start 00:24 08/21/2016 Sunil Duckworth R.N., Stop 01:58 08/21/2016 Barbara Jimenez, Medication Administered: IV NS (SALINE), Dose: IV Fluids over 1 hour(s), Rate: 1000 mL/hr, Bolus: 1000 mL over 1 hour(s), Dispensed: 1000 mL bag, Site: #1 right AC. Medication Ordered: IV NS : initial bolus none -, then 1000 mL/hr for 2h (NOW); Urgent. Start 00:36 08/21/2016 Sunil Duckworth R.N., Stop 01:59 08/21/2016 Barbara Jimenez, Medication Administered: LEVAQUIN [IVPB] (LEVOFLOXACIN), Dose: 750 mg IVPB over 2.5 hour(s), Rate: 100 mL/hr, Dispensed: 250 mL bag, Site: #2 left AC. Medication Ordered: Levaquin IV 750 mg/150 mL (NOW). Given 00:42 08/21/2016 Sunil Duckworth R.N. Medication Administered: TYLENOL [PO] (ACETAMINOPHEN), Dose: 650 mg Tablets PO. Medication Ordered: Tylenol PO 650 mg (NOW). Given 01:14 08/21/2016 Sunil Duckworth R.N. Medication Administered: TORADOL [IVP], Dose: 30 mg IVP over 2 minute(s), Site: #1 right AC. Medication Ordered: Toradol IV 30 mg (NOW). Given 01:08/21/2016 Sunil Duckworth R.N. Medication Administered: DILAUDID [IVP] (HYDROMORPHONE HCL PF), Dose: 1 mg IVP over 2 minute(s), Site: #1 right AC. Medication Ordered: Dilaudid IV 1 mg (NOW). Start 02:26 08/21/2016 Don, Patrick, R.N. Medication Administered: VANCOMYCIN [IVPB], Dose: 2 gm IVPB over 1 hour(s), Rate: 200 mL/hr, Site: #1 right AC. Medication Ordered: Vancomycin IV 25 mg/kg (NOW).
--- NOTE | 2016-08-21 08:47 | ED MED RECONCILIATION SUMMARY ---
Patient: MOON BUCHANAN Medication Reconciliation Report [facility] VisitID: [id number] [address] [place] [address] 51y, M Registration Date/Time: 08/21/2016 Weight: 81.6 kg Height/Length: 71 in. BMI: 25.1 ALLERGIES: No Known Drug Allergy The patient's Home Medications are listed below: NONE. The source(s) of the original Home Medication information: patient The following Medications were given to the patient in the Emergency Department: IV NS IV Fluids bolus 1000 mL over 1 hour(s), then 1000 mL/hr, administered: 08/21/2016 12:24:00 AM Levaquin [IVPB] IVPB bolus 0, then 750 mg 100 mL/hr, administered: 08/21/2016 12:36:00 AM Tylenol [PO] PO 650 mg, administered: 08/21/2016 12:42:00 AM Toradol [IVP] IVP 30 mg, administered: 08/21/2016 1:14:00 AM Dilaudid [IVP] IVP 1 mg, administered: 08/21/2016 1:14:00 AM Vancomycin [IVPB] IVPB bolus 0, then 2 gm 200 mL/hr, administered: 08/21/2016 2:26:00 AM The following Medications were prescribed to the patient: None.
--- NOTE | 2016-08-21 08:47 | ED MED RECONCILIATION SUMMARY ---
Patient: MOON BUCHANAN Medication Reconciliation Report [facility] VisitID: [id number] [address] [place] [address] 51y, M Registration Date/Time: 08/21/2016 Weight: 81.6 kg Height/Length: 71 in. BMI: 25.1 ALLERGIES: No Known Drug Allergy The patient's Home Medications are listed below: NONE. The source(s) of the original Home Medication information: patient The following Medications were given to the patient in the Emergency Department: IV NS IV Fluids bolus 1000 mL over 1 hour(s), then 1000 mL/hr, administered: 08/21/2016 12:24:00 AM Levaquin [IVPB] IVPB bolus 0, then 750 mg 100 mL/hr, administered: 08/21/2016 12:36:00 AM Tylenol [PO] PO 650 mg, administered: 08/21/2016 12:42:00 AM Toradol [IVP] IVP 30 mg, administered: 08/21/2016 1:14:00 AM Dilaudid [IVP] IVP 1 mg, administered: 08/21/2016 1:14:00 AM Vancomycin [IVPB] IVPB bolus 0, then 2 gm 200 mL/hr, administered: 08/21/2016 2:26:00 AM The following Medications were prescribed to the patient: None.
[2016-08-21 10:29] VITALS: BP 122/71
[2016-08-21 14:17] VITALS: BP 124/76
[2016-08-21 17:48] VITALS: BP 125/77
[2016-08-21 22:33] VITALS: BP 125/77
[2016-08-22 02:42] VITALS: BP 113/71
[2016-08-22 06:54] VITALS: BP 116/70
--- NOTE | 2016-08-22 07:36 | Progress Note ---
Subjective General Primary Care Provider: None Attending Physician: James Goode MD. 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 [facility] ER evaluation was consistent with pneumonia with hypoxia. Secondary to the above, the patient was admitted by James Goode M.D. for further evaluation and treatment. Subjective Patient is generally feeling better. Patient states that he is using less oxygen to management loss. Improvement is in his breathing. Patient had a better night's sleep. Patient requests None Physical Exam Vital Signs / I&Os Vital Signs Date Time Temp Pulse Resp B/P Pulse O2 O2 Flow FiO2 Ox Delivery Rate 08/22 0659 94 Nasal 2.0 Cannula 08/22 0654 99.0 102 18 116/70 91 Room Air 0.0 08/22 0242 99.0 107 18 113/71 91 Nasal 2.0 Cannula 08/21 2233 98.4 105 18 125/77 92 Nasal 2.0 Cannula 08/21 1748 105 18 125/77 100 Nasal 2.0 Cannula 08/21 1537 Nasal 2.0 Cannula 08/21 1417 98.8 101 18 124/76 92 Nasal 2.0 Cannula 08/21 1241 2.0 08/21 1029 99.0 105 18 122/71 90 Nasal 6.0 Cannula 08/21 1007 6.0 08/21 0754 3.0 I&O 08/21 0800 08/21 1600 08/22 0000 Intake Total 109 1692 960 Output Total 3450 1000 1150 Balance -3341 692 -190 General Appearance Cooperative, No acute distress HEENT EOMI Lungs wheeze, clear air movement, no crackles, rhonchi, Cardiovascular Normal S1 and S2 Abdomen Soft, No guarding LAB Results Laboratory Tests 08/21 08/22 08/22 08/22 2030 0520 0520 0985 Chemistry Plasma Sodium (136 - 145 mmol/L) 139 Plasma Potassium (3.5 - 5.1 mmol/L) 4.3 Plasma Chloride (98 - 107 mmol/L) 106 CO2 (Enzymatic) (21 - 32 mmol/L) 24 BUN (7 - 18 mg/dL) 10 Creatinine (0.6 - 1.3 mg/dL) 0.9 Est GFR ( Amer) (mL/min) >60 Est GFR (Non-Af Amer) (mL/min) >60 Glucose (70 - 110 mg/dL) 121 Lactic Acid (0.4 - 2.0 mmol/L) 1.7 0.9 Plasma Calcium (8.5 - 10.1 mg/dL) 8.0 Plasma Magnesium (1.8 - 2.4 mg/dL) 2.0 Total Bilirubin (0.0 - 1.0 mg/dL) 0.2 AST (15 - 37 U/L) 15 ALT (12 - 78 U/L) 23 Alkaline Phosphatase (46 - 116 U/L) 76 Total Protein (6.4 - 8.2 g/dL) 5.8 Albumin (3.3 - 5.0 g/dL) 2.3 Hematology WBC (4.5 - 11.5 K/uL) 13.5 RBC (4.50 - 5.90 M/uL) 4.23 Hgb (13.5 - 17.5 gm/dL) 12.4 Hct (41.0 - 53.0 %) 36.9 MCV (80 - 100 fL) 87 MCH (26 - 34 pg) 29 RDW (11.6 - 14.8 %) 13.7 Neut % (Auto) (50 - 75 %) 82.9 Lymph % (Auto) (25 - 40 %) 9.7 [place] % (Auto) (3 - 14 %) 5.1 Eos % (Auto) (0 - 4 %) 2.3 Baso % (Auto) (0 - 2 %) 0 Plt Count, EDTA (150 - 400 K/uL) 197 PUBS MCHC (31 - 37 g/dL) 34 Toxicology Vancomycin Trough (10.0 - 20.0 ug/mL) 10.9 Assessment and Plan Problem List 1. Pneumonia Plan Maintaining antibiotic. Resolving pneumonia. Continue with the same regimen. Narrow antibiotics over the next few days. 2. Hypoxia Plan Oxygen is being turned down. Patient is no longer found to be hypoxic. Maintaining O2 at night. Mild drop in oxygen saturations with activity. 3. IVDA Plan Discussed and reviewed IVDA drug use. Recommending cessation 4. Tachycardia Plan Intermittent periods of tachycardia. Following trends. May consider rate control. 5. Illicit drug use Plan Cessation from narcotics or other forms substance. Current status: Fair, stabilizing Anticipated discharge date: Anticipated discharge in 1-2 days Anticipated discharge placement: Home Patient care time: Time spent in chart review, patient interview, physical exam, CPOE, and care documentation: 25 minutes Visit to patient today: 1 Complexity of care: Moderate Initial patient evaluation: Stacy DVT prophylaxis: Lovenox GI prophylaxis; pantoprazole. E&M Codes Rounding: Inpt-Moderate/33971
[2016-08-22 10:21] VITALS: BP 130/78
[2016-08-22 14:26] VITALS: BP 128/84
[2016-08-22 17:50] VITALS: BP 124/85
[2016-08-22 22:31] VITALS: BP 126/79
[2016-08-23 02:48] VITALS: BP 135/76
--- NOTE | 2016-08-23 07:20 | Progress Note ---
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 [facility] ER evaluation was consistent with pneumonia with hypoxia. Secondary to the above, the patient was admitted by James Goode M.D. for further evaluation and treatment. Subjective Patient is doing better. She reports no longer need for oxygen. Patient sleeping well overnight. Patient reports that he has used heroin and methamphetamine in the past. Patient reports of a foreign object found in the left fifth digit of the left hand. Nursing staff. Wound care was able to remove the foreign object. During the procedure, possible exudative from the finger. Patient requests Foreign object removal from the left hand Physical Exam Vital Signs / I&Os Vital Signs Date Time Temp Pulse Resp B/P Pulse O2 O2 Flow FiO2 Ox Delivery Rate 08/23 0248 99.1 95 18 135/76 95 Room Air 08/22 2340 Room Air 08/22 2231 98.1 102 18 126/79 93 Room Air 0.0 08/22 1750 97.9 101 18 124/85 93 Room Air 08/22 1630 Room Air 08/22 1426 98.2 103 18 128/84 92 08/22 1221 Room Air 0.0 08/22 1024 94 Nasal 2.0 Cannula 08/22 1021 98.4 104 18 130/78 91 Room Air 0.0 08/22 0900 Nasal 1.0 Cannula 08/22 0735 1.0 I&O 08/22 0800 08/22 1600 08/23 0000 Intake Total 1331 3285 934 Output Total 500 2350 800 Balance 831 935 134 General Appearance Oriented X3, Cooperative HEENT EOMI Lungs Clear to auscultation, no crackles, no wheeze. Air movement is improved. Neck Supple Cardiovascular Regular rate and rhythm, Normal S1 and S2 Abdomen Soft, No tenderness Extremities No clubbing, No edema Neurological Normal tone Psych/Mental Status Mood normal LAB Results Laboratory Tests 08/23 08/23 0608 0610 Chemistry Plasma Sodium (136 - 145 mmol/L) 140 Plasma Potassium (3.5 - 5.1 mmol/L) 4.0 Plasma Chloride (98 - 107 mmol/L) 108 CO2 (Enzymatic) (21 - 32 mmol/L) 25 BUN (7 - 18 mg/dL) 14 Creatinine (0.6 - 1.3 mg/dL) 1.0 Est GFR ( Amer) (mL/min) >60 Est GFR (Non-Af Amer) (mL/min) >60 Glucose (70 - 110 mg/dL) 100 Plasma Calcium (8.5 - 10.1 mg/dL) 8.8 Total Bilirubin (0.0 - 1.0 mg/dL) 0.2 AST (15 - 37 U/L) 22 ALT (12 - 78 U/L) 34 Alkaline Phosphatase (46 - 116 U/L) 74 Total Protein (6.4 - 8.2 g/dL) 6.7 Albumin (3.3 - 5.0 g/dL) 2.3 Hematology WBC (4.5 - 11.5 K/uL) 9.2 RBC (4.50 - 5.90 M/uL) 4.32 Hgb (13.5 - 17.5 gm/dL) 12.7 Hct (41.0 - 53.0 %) 37.9 MCV (80 - 100 fL) 88 MCH (26 - 34 pg) 29 RDW (11.6 - 14.8 %) 13.6 Neut % (Auto) (50 - 75 %) 69.7 Lymph % (Auto) (25 - 40 %) 17.9 [place] % (Auto) (3 - 14 %) 7.7 Eos % (Auto) (0 - 4 %) 4.4 Baso % (Auto) (0 - 2 %) 0.3 Plt Count, EDTA (150 - 400 K/uL) 232 PUBS MCHC (31 - 37 g/dL) 33 Assessment and Plan Problem List 1. Pneumonia Plan Patient is responding well to current therapy. We'll continue to monitor vitals stats. Begin to reduce antibiotic coverage. Abscess in that hand secondary to foreign body. Appropriate antibiotic coverage. 2. Hypoxia Plan Oxygen has been weaned off. Patient is recovering from her pneumonia and stabilizing 3. Tachycardia Plan Stable 4. Illicit drug use Plan See above. 5. Abscess of left hand Plan Problem body removed from the left hand. Foreign body was removed and pus followed. Patient is on appropriate antibiotic. Wound was cleaned and dressed. 6. IVDA Plan Discussed the use of substances. Reviewed the recommendation on discontinuing. Patient has recommendations to review options for recovery. Long discussion regarding recovery and discontinuation of all substance Patient is considering counseling He is also considering quitting on his own. Current status: Fair - Improving Anticipated discharge date: 08/24/2016 Anticipated discharge placement: Home Patient care time: Time spent in chart review, patient interview, physical exam, CPOE, and care documentation: 25 minutes Visit to patient today: 1 Complexity of care: Moderate E&M Codes Rounding: Inpt-High/64617
[2016-08-23 07:21] VITALS: BP 124/81
[2016-08-23 11:35] VITALS: BP 122/77
[2016-08-23 14:27] VITALS: BP 121/81
[2016-08-23 18:10] VITALS: BP 118/79
[2016-08-23 22:32] VITALS: BP 123/70
[2016-08-24 02:33] VITALS: BP 130/68
--- NOTE | 2016-08-24 06:53 | Progress Note ---
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 [facility] ER evaluation was consistent with pneumonia with hypoxia. Secondary to the above, the patient was admitted by James Goode M.D. for further evaluation and treatment. Subjective Patient reports that he had a better evening last night. Patient states that he started on oxygen now for nearly 24 hours. Patient is breathing without difficulty. Patient is up and walking the simms without challenge. Patient states that he is eating well. Patient states that the left finger feels better. No further complaints. Patient is ready to be discharged home. Patient was asking about his working activities. 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 Patient requests Foreign object removal from the left hand Physical Exam Vital Signs / I&Os Vital Signs Date Time Temp Pulse Resp B/P Pulse O2 O2 Flow FiO2 Ox Delivery Rate 08/24 0233 98.6 77 15 130/68 99 Room Air 0.0 08/23 2341 Room Air 08/23 2232 98.2 88 16 123/70 98 Room Air 08/23 1810 98.2 100 18 118/79 97 Room Air 08/23 1427 98.4 90 18 121/81 94 Room Air 08/23 1135 98.2 88 18 122/77 94 Room Air 0.0 08/23 0850 Room Air 08/23 0721 98.1 89 18 124/81 94 Room Air 0.0 I&O 08/23 0800 08/23 1600 08/24 0000 Intake Total 1904 1480 570 Output Total 1875 1800 900 Balance 29 -320 -330 General Appearance Oriented X3, Cooperative HEENT Normal exam, Atraumatic, EOMI Lungs Clear to auscultation, Normal air movement, no wheeze, rales or rhonchi Neck Supple, No JVD Cardiovascular Regular rate and rhythm, Normal S1 and S2 Abdomen Soft, No tenderness Extremities the left finger pad is bandaged. No redness or other lesion Skin No Breakdown Psych/Mental Status Mental status normal, Mood normal LAB Results Laboratory Tests 08/24 08/24 0725 0930 Chemistry Plasma Sodium (136 - 145 mmol/L) 143 Plasma Potassium (3.5 - 5.1 mmol/L) 4.5 Plasma Chloride (98 - 107 mmol/L) 105 CO2 (Enzymatic) (21 - 32 mmol/L) 26 BUN (7 - 18 mg/dL) 16 Creatinine (0.6 - 1.3 mg/dL) 0.9 Est GFR ( Amer) (mL/min) >60 Est GFR (Non-Af Amer) (mL/min) >60 Glucose (70 - 110 mg/dL) 89 Plasma Calcium (8.5 - 10.1 mg/dL) 8.6 Hematology WBC (4.5 - 11.5 K/uL) 8.3 RBC (4.50 - 5.90 M/uL) 4.58 Hgb (13.5 - 17.5 gm/dL) 13.4 Hct (41.0 - 53.0 %) 40.3 MCV (80 - 100 fL) 88 MCH (26 - 34 pg) 29 RDW (11.6 - 14.8 %) 13.6 Neut % (Auto) (50 - 75 %) 67.1 Lymph % (Auto) (25 - 40 %) 19.4 [place] % (Auto) (3 - 14 %) 7.9 Eos % (Auto) (0 - 4 %) 5.3 Baso % (Auto) (0 - 2 %) 0.3 Plt Count, EDTA (150 - 400 K/uL) 298 PUBS MCHC (31 - 37 g/dL) 33 Toxicology Vancomycin Trough Cancelled Assessment and Plan Problem List 1. Pneumonia Plan We'll continue with outpatient by mouth levofloxacin for the next 5 days. Home areas status much improved. She should increase his activity to tolerance upon discharge. 2. Hypoxia Plan Patient is no longer needing oxygen for maintaining oxygenation. Discontinue oxygen therapy. Continue with the antibiotics at home. 3. IVDA Plan Discussions regarding IV drug use and other illicit drug substances during hospital stay. Patient agreed that he will plan to see forms of cessation. Patient reports it benefits of stopping. Outpatient therapy is recommended. 4. Tachycardia Plan The tachycardic episodes seen on admission has resolved 5. Abscess of left hand Plan Abscess in the left hand has resolved. E&M Codes Rounding: Inpt-Moderate/13126
--- NOTE | 2016-08-24 06:53 | Progress Note ---
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 [facility] ER evaluation was consistent with pneumonia with hypoxia. Secondary to the above, the patient was admitted by James Goode M.D. for further evaluation and treatment. Subjective Patient reports that he had a better evening last night. Patient states that he started on oxygen now for nearly 24 hours. Patient is breathing without difficulty. Patient is up and walking the simms without challenge. Patient states that he is eating well. Patient states that the left finger feels better. No further complaints. Patient is ready to be discharged home. Patient was asking about his working activities. 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 Patient requests Foreign object removal from the left hand Physical Exam Vital Signs / I&Os Vital Signs Date Time Temp Pulse Resp B/P Pulse O2 O2 Flow FiO2 Ox Delivery Rate 08/24 0233 98.6 77 15 130/68 99 Room Air 0.0 08/23 2341 Room Air 08/23 2232 98.2 88 16 123/70 98 Room Air 08/23 1810 98.2 100 18 118/79 97 Room Air 08/23 1427 98.4 90 18 121/81 94 Room Air 08/23 1135 98.2 88 18 122/77 94 Room Air 0.0 08/23 0850 Room Air 08/23 0721 98.1 89 18 124/81 94 Room Air 0.0 I&O 08/23 0800 08/23 1600 08/24 0000 Intake Total 1904 1480 570 Output Total 1875 1800 900 Balance 29 -320 -330 General Appearance Oriented X3, Cooperative HEENT Normal exam, Atraumatic, EOMI Lungs Clear to auscultation, Normal air movement, no wheeze, rales or rhonchi Neck Supple, No JVD Cardiovascular Regular rate and rhythm, Normal S1 and S2 Abdomen Soft, No tenderness Extremities the left finger pad is bandaged. No redness or other lesion Skin No Breakdown Psych/Mental Status Mental status normal, Mood normal LAB Results Laboratory Tests 08/24 08/24 0725 0930 Chemistry Plasma Sodium (136 - 145 mmol/L) 143 Plasma Potassium (3.5 - 5.1 mmol/L) 4.5 Plasma Chloride (98 - 107 mmol/L) 105 CO2 (Enzymatic) (21 - 32 mmol/L) 26 BUN (7 - 18 mg/dL) 16 Creatinine (0.6 - 1.3 mg/dL) 0.9 Est GFR ( Amer) (mL/min) >60 Est GFR (Non-Af Amer) (mL/min) >60 Glucose (70 - 110 mg/dL) 89 Plasma Calcium (8.5 - 10.1 mg/dL) 8.6 Hematology WBC (4.5 - 11.5 K/uL) 8.3 RBC (4.50 - 5.90 M/uL) 4.58 Hgb (13.5 - 17.5 gm/dL) 13.4 Hct (41.0 - 53.0 %) 40.3 MCV (80 - 100 fL) 88 MCH (26 - 34 pg) 29 RDW (11.6 - 14.8 %) 13.6 Neut % (Auto) (50 - 75 %) 67.1 Lymph % (Auto) (25 - 40 %) 19.4 [place] % (Auto) (3 - 14 %) 7.9 Eos % (Auto) (0 - 4 %) 5.3 Baso % (Auto) (0 - 2 %) 0.3 Plt Count, EDTA (150 - 400 K/uL) 298 PUBS MCHC (31 - 37 g/dL) 33 Toxicology Vancomycin Trough Cancelled Assessment and Plan Problem List 1. Pneumonia Plan We'll continue with outpatient by mouth levofloxacin for the next 5 days. Home areas status much improved. She should increase his activity to tolerance upon discharge. 2. Hypoxia Plan Patient is no longer needing oxygen for maintaining oxygenation. Discontinue oxygen therapy. Continue with the antibiotics at home. 3. IVDA Plan Discussions regarding IV drug use and other illicit drug substances during hospital stay. Patient agreed that he will plan to see forms of cessation. Patient reports it benefits of stopping. Outpatient therapy is recommended. 4. Tachycardia Plan The tachycardic episodes seen on admission has resolved 5. Abscess of left hand Plan Abscess in the left hand has resolved. E&M Codes Rounding: Inpt-Moderate/93857
--- NOTE | 2016-08-24 06:53 | Discharge Summary ---
Discharge Summary Report Admit Date 08/21/16 Discharge Date 08/24/16 Admission Diagnosis 1. Pneumonia. 2. Hypoxia. 3. IVDA. 4. Illicit drug use 5. Tachycardia Discharge Diagnosis 1. Pneumonia, resolving. 2. Hypoxia, resolved. 3. IVDA. 4. Illicit drug use. 5. Abscess of the left hand 6. 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 [facility] ER evaluation was consistent with pneumonia with hypoxia. Secondary to the above, the patient was admitted by James Goode M.D. for further evaluation and treatment. The patient first bagan having symptoms related to an upper respiratory infection more than 5 days ago. Patient states that the respiratory infection worsen over the past 24 hours. Patient states that he had initially had cold- like symptoms with cough, sneeze, runny nose, and fever.. Patient now with past 24 hours has experienced left sided chest pain, cough, congestion and tightness in the chest. Patient also reports of sinus-like pressure. He is also having symptoms of shortness of breath, weakness and poor appetite. Secondary to the above the patient presented to [facility] emergency department for further evaluation and treatment. [facility] ER evaluation was consistent with left-sided pneumonia, pleuritic-noncardiac chest pain. Secondary to the above the patient was admitted for further evaluation and treatment Hospital Course Patient was originally admitted with pneumonia and consequential hypoxemia. Patient was in the hospital for nearly 4 days. Patient was on IV antibiotics 2 for coverage. Patient was presumed to be bacteremic or pre-septic. He shows on oxygen for 3 days until this was weaned off on the fourth day. Patient did not have any further oxygen requirements on the final day of hospitalization. Long discussion regarding patient's IV drug use and use of other illicit drugs. Patient had willingness to seek care and counseled regarding the drug use. Patient elected more so to attempt to resolve on his own. Patient had a foreign body in the left fifth digit. This was removed on day 3. He was seen that there was pus following the removal. No further antibiotics were started, given the appropriate skin coverage with current antibiotic support. Other than the above, patient needs to continue with the oral fluoroquinolone levofloxacin 750 mg for the next 5 days. Patient will need to have follow-up with Dr. Beebe upon discharge. General Appearance Oriented X3, Cooperative Lungs Normal air movement Cardiovascular Normal S1, Normal S2 Abdomen Soft, No tenderness Skin abscess on the left hand, and body removal, wrapped and bandaged. Neurological Normal speech, Cranial nerves 3-12 NL Psych/Mental Status Mood NL Lab/Imaging Laboratory Tests 08/24 08/24 0725 0930 Chemistry Plasma Sodium (136 - 145 mmol/L) 143 Plasma Potassium (3.5 - 5.1 mmol/L) 4.5 Plasma Chloride (98 - 107 mmol/L) 105 CO2 (Enzymatic) (21 - 32 mmol/L) 26 BUN (7 - 18 mg/dL) 16 Creatinine (0.6 - 1.3 mg/dL) 0.9 Est GFR ( Amer) (mL/min) >60 Est GFR (Non-Af Amer) (mL/min) >60 Glucose (70 - 110 mg/dL) 89 Plasma Calcium (8.5 - 10.1 mg/dL) 8.6 Hematology WBC (4.5 - 11.5 K/uL) 8.3 RBC (4.50 - 5.90 M/uL) 4.58 Hgb (13.5 - 17.5 gm/dL) 13.4 Hct (41.0 - 53.0 %) 40.3 MCV (80 - 100 fL) 88 MCH (26 - 34 pg) 29 RDW (11.6 - 14.8 %) 13.6 Neut % (Auto) (50 - 75 %) 67.1 Lymph % (Auto) (25 - 40 %) 19.4 [place] % (Auto) (3 - 14 %) 7.9 Eos % (Auto) (0 - 4 %) 5.3 Baso % (Auto) (0 - 2 %) 0.3 Plt Count, EDTA (150 - 400 K/uL) 298 PUBS MCHC (31 - 37 g/dL) 33 Toxicology Vancomycin Trough Cancelled CT angiogram of chest IMPRESSION: 1. Dense consolidation at the left lung base with mild parenchymal changes at the right lung base. Findings are most compatible with pneumonia (e.g., bacterial). 2. Mildly prominent mediastinal lymph nodes (most likely reactive adenopathy). 3. Otherwise negative CT pulmonary arteriogram. No evidence of pulmonary embolus. Chest x-ray IMPRESSION: 1. Moderate parenchymal changes at the left lung base. Consider inflammatory process and/or pneumonia. Discharge Instructions/Meds Long discussion regarding patient's IV drug use and use of other illicit drugs. Patient had willingness to seek care and counseled regarding the drug use. Patient elected more so to attempt to resolve on his own. Other than the above, patient needs to continue with the oral fluoroquinolone, levofloxacin 750 mg for the next 5 days. Patient will need to have follow-up with Dr. Beebe upon discharge. Patient can resume work in the next 2-4 days.
--- NOTE | 2016-08-24 06:53 | Discharge Summary ---
Discharge Summary Report Admit Date 08/21/16 Discharge Date 08/24/16 Admission Diagnosis 1. Pneumonia. 2. Hypoxia. 3. IVDA. 4. Illicit drug use 5. Tachycardia Discharge Diagnosis 1. Pneumonia, resolving. 2. Hypoxia, resolved. 3. IVDA. 4. Illicit drug use. 5. Abscess of the left hand 6. 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 [facility] ER evaluation was consistent with pneumonia with hypoxia. Secondary to the above, the patient was admitted by James Goode M.D. for further evaluation and treatment. The patient first bagan having symptoms related to an upper respiratory infection more than 5 days ago. Patient states that the respiratory infection worsen over the past 24 hours. Patient states that he had initially had cold- like symptoms with cough, sneeze, runny nose, and fever.. Patient now with past 24 hours has experienced left sided chest pain, cough, congestion and tightness in the chest. Patient also reports of sinus-like pressure. He is also having symptoms of shortness of breath, weakness and poor appetite. Secondary to the above the patient presented to [facility] emergency department for further evaluation and treatment. [facility] ER evaluation was consistent with left-sided pneumonia, pleuritic-noncardiac chest pain. Secondary to the above the patient was admitted for further evaluation and treatment Hospital Course Patient was originally admitted with pneumonia and consequential hypoxemia. Patient was in the hospital for nearly 4 days. Patient was on IV antibiotics 2 for coverage. Patient was presumed to be bacteremic or pre-septic. He shows on oxygen for 3 days until this was weaned off on the fourth day. Patient did not have any further oxygen requirements on the final day of hospitalization. Long discussion regarding patient's IV drug use and use of other illicit drugs. Patient had willingness to seek care and counseled regarding the drug use. Patient elected more so to attempt to resolve on his own. Patient had a foreign body in the left fifth digit. This was removed on day 3. He was seen that there was pus following the removal. No further antibiotics were started, given the appropriate skin coverage with current antibiotic support. Other than the above, patient needs to continue with the oral fluoroquinolone levofloxacin 750 mg for the next 5 days. Patient will need to have follow-up with Dr. Beebe upon discharge. General Appearance Oriented X3, Cooperative Lungs Normal air movement Cardiovascular Normal S1, Normal S2 Abdomen Soft, No tenderness Skin abscess on the left hand, and body removal, wrapped and bandaged. Neurological Normal speech, Cranial nerves 3-12 NL Psych/Mental Status Mood NL Lab/Imaging Laboratory Tests 08/24 08/24 0725 0930 Chemistry Plasma Sodium (136 - 145 mmol/L) 143 Plasma Potassium (3.5 - 5.1 mmol/L) 4.5 Plasma Chloride (98 - 107 mmol/L) 105 CO2 (Enzymatic) (21 - 32 mmol/L) 26 BUN (7 - 18 mg/dL) 16 Creatinine (0.6 - 1.3 mg/dL) 0.9 Est GFR ( Amer) (mL/min) >60 Est GFR (Non-Af Amer) (mL/min) >60 Glucose (70 - 110 mg/dL) 89 Plasma Calcium (8.5 - 10.1 mg/dL) 8.6 Hematology WBC (4.5 - 11.5 K/uL) 8.3 RBC (4.50 - 5.90 M/uL) 4.58 Hgb (13.5 - 17.5 gm/dL) 13.4 Hct (41.0 - 53.0 %) 40.3 MCV (80 - 100 fL) 88 MCH (26 - 34 pg) 29 RDW (11.6 - 14.8 %) 13.6 Neut % (Auto) (50 - 75 %) 67.1 Lymph % (Auto) (25 - 40 %) 19.4 [place] % (Auto) (3 - 14 %) 7.9 Eos % (Auto) (0 - 4 %) 5.3 Baso % (Auto) (0 - 2 %) 0.3 Plt Count, EDTA (150 - 400 K/uL) 298 PUBS MCHC (31 - 37 g/dL) 33 Toxicology Vancomycin Trough Cancelled CT angiogram of chest IMPRESSION: 1. Dense consolidation at the left lung base with mild parenchymal changes at the right lung base. Findings are most compatible with pneumonia (e.g., bacterial). 2. Mildly prominent mediastinal lymph nodes (most likely reactive adenopathy). 3. Otherwise negative CT pulmonary arteriogram. No evidence of pulmonary embolus. Chest x-ray IMPRESSION: 1. Moderate parenchymal changes at the left lung base. Consider inflammatory process and/or pneumonia. Discharge Instructions/Meds Long discussion regarding patient's IV drug use and use of other illicit drugs. Patient had willingness to seek care and counseled regarding the drug use. Patient elected more so to attempt to resolve on his own. Other than the above, patient needs to continue with the oral fluoroquinolone, levofloxacin 750 mg for the next 5 days. Patient will need to have follow-up with Dr. Beebe upon discharge. Patient can resume work in the next 2-4 days.
[2016-08-24 07:10] VITALS: BP 133/75
[2016-08-24] MEDS ORDERED: LEVOFLOXACIN250 MG PO (11:26)
--- NOTE | 2016-08-24 11:31 | Provider's Discharge Care Plan ---
Problem, Goal, Plan Problem List 1. Pneumonia Goals: Improved health/wellness, Prevent disease progress Instructions: Follow up as directed, Stop smoking 2. Hypoxia Goals: this is lack of oxygen. This is resolved with treatment for the pneumonia Instructions: Stop smoking, attempt to discontinue smoking. Activities 3. IVDA Goals: Improve disease control, Learn about illness, Screening, discussion regarding outpatient care for the treatment of substance. Attempted abstaining from all substances. Instructions: Follow up as directed, Take meds as directed 4. Tachycardia Goals: tachycardic event was related to illness and now has resolved. Instructions: Follow up as directed 5. Abscess of left hand Goals: form body removed from the left fifth digit finger. This is resolving. Instructions: Follow up as directed 6. Illicit drug use Goals: improved on illness and disease awareness; abstain from all from all substances Instructions: Follow up as directed, Reduce stress
== END 2016-08-24 12:50 | disposition home or self-care (01) | DRG 139 ==
LOC: ED SRH 00:06 → TRANS SRH 02:05 → ACUTE2 SRH 02:05 → TRANS SRH 02:05 → ACUTE2 SRH 02:49
PROVIDERS: ADMIT Pediatrics
DX: J18.9 Pneumonia, unspecified organism (principal); R09.02 Hypoxemia; L02.512 Cutaneous abscess of left hand; S61.227A Laceration with foreign body of left little finger without damage to nail, initial encounter; W45.8XXA Other foreign body or object entering through skin, initial encounter; Y99.8 Other external cause status; F15.10 Other stimulant abuse, uncomplicated; F11.10 Opioid abuse, uncomplicated; R00.0 Tachycardia, unspecified; F17.210 Nicotine dependence, cigarettes, uncomplicated
CPT/HCPCS: 90004; 90047; 90065; 90074; 90100; 90616; 91583; 92031; 92610; 92720; 92760; 92761; 92762; 92763; 92764; 92765; 92766; 92767; 93004; 95059